=== PATIENT | male | born 1940 | race Caucasian/White ===

== ENCOUNTER 2019-03-30 20:01 | Emergency (ER) | payer MEDICARE ==
--- NOTE | 2019-03-30 20:29 | ED Physician Documentation ---
PD HPI CHEST PAIN - Stated complaint Stated Complaint: CP / HBP - History obtained from History obtained from: Patient - History of Present Illness Timing - onset: Today Timing - duration: Hours (2) Timing - details: Gradual onset Pain level now: 2 Location: Substernal, Left chest Associated symptoms: Shortness of air. No: Nausea, Vomiting, Feeling faint / dizzy, General Weakness Recently seen: Not recently seen - Additional information Additional information: This is an 78-year-old man who presents with his complaints that he is having some pain along his left lateral chest wall that reminds him of when he would get "side stitches" when he ran track and also some substernal discomfort that reminds him of his gastroesophageal reflux. He rates the pain now at about a 3 out of 10 and it has been there for a couple of hours but he is been experiencing some shortness of breath over the past couple of days and intermittently over the past couple of weeks. He became concerned [facility] because his blood pressure was 220/90 and it has been running in the 110s. He did take 1 baby aspirin and 1 adult aspirin prior to coming in [facility] he tried some baking soda which usually helps with his gastroesophageal reflux with minimal relief. He thinks he may be developing some asthma although he is never been fully diagnosed with that and they have been busy clearing some brush and weeds recently and he is attributed to his increase in nasal mucus to that. He has had very minimal cough. He does not use inhalers. He is been taking a herbal supplement for his blood pressure called Rauwolfia root. This herb has controlled his blood pressure better and with less side effects than the lisinopril he was taking previously. He is been on it for about 6 weeks now. He does complain now of feeling "anxious and stressed" he had some shaking jerking motions that is not uncommon for him when he gets stressed. He felt clammy and warm on the way here but he has not documented any fevers. Is not nauseous or vomiting. He is been urinating okay admits to getting up several times through the night. He and his have recently moved here in June of this year and they have not yet established with a primary care provider. He is a generally healthy man although he has had an [place] in the past with stent placement. Review of Systems Constitutional: denies: Fever Eyes: reports: Other (wears glasses). denies: Decreased vision Nose: reports: Congestion Cardiac: reports: Chest pain / pressure. denies: Palpitations, Pedal edema Respiratory: reports: Dyspnea, Cough GI: reports: Other (Feels bloated). denies: Nausea, Vomiting : reports: Other (Chronic nocturia). denies: Dysuria Skin: denies: Rash Musculoskeletal: denies: Back pain Neurologic: denies: Focal weakness, Near syncope Psychiatric: reports: Anxiety (He is feeling anxious now about the fact that his blood pressure still high and he does not want to have a stroke.) Endocrine: reports: Other (He is not diabetic) PD PAST MEDICAL HISTORY - Present Medications Home Medications: Ambulatory Orders Medication Instructions Recorded Confirmed Famotidine [Pepcid] 20 mg PO BID #60 tablet 03/30/19 - Allergies Allergies/Adverse Reactions: Allergies Allergy/AdvReac Type Severity Reaction Status Date / Time No Known Drug Allergies Allergy Verified 03/30/19 20:39 PD ED PE NORMAL - Vitals Vital signs reviewed: Yes - General General: Alert and oriented X 3, No acute distress, Well developed/nourished, Other (Very pleasant 78-year-old gentleman) - HEENT HEENT: Atraumatic, PERRL, EOMI, Moist mucous membranes - Neck Neck: No adenopathy, Thyroid normal - Cardiac Cardiac: RRR, No murmur, Strong equal pulses - Respiratory Respiratory: No respiratory distress, Clear bilaterally - Abdomen Abdomen: Normal bowel sounds, Soft, Non tender - Derm Derm: Normal color, No rash - Neuro Neuro: Alert and oriented X 3, 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, No motor deficit, No sensory deficit, Normal speech - Psych Psych: Normal mood, Normal affect Results - Vitals Vitals: Vital Signs - 24 hr 03/30/19 03/30/19 03/30/19 20:05 21:42 21:50 Temperature 37.1 C Heart Rate 90 70 66 Respiratory 16 18 13 Rate Blood Pressure 223/101 H 165/81 H 149/76 H O2 Saturation 96 96 95 03/30/19 22:50 Temperature Heart Rate 66 Respiratory 16 Rate Blood Pressure 149/70 H O2 Saturation 96 Oxygen O2 Source Room air - EKG (time done) 2009 Rate: Rate (enter#) (83) Rhythm: NSR Intervals: Normal FL Ischemia: Normal ST segments Other comments: Other comments (L ant fascicular block) Compare to prior EKG: Old EKG unavailable - Labs Labs: Laboratory Tests 03/30/19 03/30/19 03/30/19 20:18 20:18 20:18 WBC 6.6 RBC 4.60 L Hgb 13.8 L Hct 42.6 MCV 92.6 MCH 30.0 MCHC 32.4 RDW 14.6 Plt Count 210 MPV 9.2 Neut # (Auto) 3.7 Lymph # (Auto) 2.0 Laurel # (Auto) 0.7 Eos # (Auto) 0.2 Baso # (Auto) 0.0 Absolute Nucleated RBC 0.00 Nucleated RBC % 0.0 Sodium 142 Potassium 4.1 Chloride 105 Carbon Dioxide 25 Anion Gap 12.0 BUN 30 H Creatinine 1.8 H Estimated GFR (MDRD) 36 L Glucose 121 H Calcium 9.1 Total Bilirubin 0.6 AST 31 ALT 28 Alkaline Phosphatase 57 Troponin I High Sens B-Natriuretic Peptide 148 H Total Protein 6.9 Albumin 4.3 Globulin 2.6 Albumin/Globulin Ratio 1.7 Lipase 35 Urine Color Urine Clarity Urine pH Ur Specific [place] Urine Protein Urine Glucose (UA) Urine Ketones Urine Occult Blood Urine Nitrite Urine Bilirubin Urine Urobilinogen Ur Leukocyte Esterase Ur Microscopic Review Urine Culture Comments 03/30/19 03/30/19 20:18 22:22 WBC RBC Hgb Hct MCV MCH MCHC RDW Plt Count MPV Neut # (Auto) Lymph # (Auto) Laurel # (Auto) Eos # (Auto) Baso # (Auto) Absolute Nucleated RBC Nucleated RBC % Sodium Potassium Chloride Carbon Dioxide Anion Gap BUN Creatinine Estimated GFR (MDRD) Glucose Calcium Total Bilirubin AST ALT Alkaline Phosphatase Troponin I High Sens 10.3 B-Natriuretic Peptide Total Protein Albumin Globulin Albumin/Globulin Ratio Lipase Urine Color YELLOW Urine Clarity CLEAR Urine pH 6.5 Ur Specific [place] 1.015 Urine Protein NEGATIVE Urine Glucose (UA) NEGATIVE Urine Ketones NEGATIVE Urine Occult Blood NEGATIVE Urine Nitrite NEGATIVE Urine Bilirubin NEGATIVE Urine Urobilinogen 0.2 (NORMAL) Ur Leukocyte Esterase NEGATIVE Ur Microscopic Review NOT INDICATED Urine Culture Comments NOT INDICATED PD MEDICAL DECISION MAKING - ED course Complexity details: reviewed results, d/w patient, d/w family, d/w farm service consultant ED course: There is no old EKG for comparison but I think the changes that I am seeing are probably related to his prior WY and stent placement. Chest x-ray is clear. His BUN and creatinine are elevated at 30 and 1.8 we have no old values to compare with he seems to the remember number of BUN 25 but does not know what his creatinine was. His urine does not show any protein. We discussed the long-term health consequences of uncontrolled hypertension and the fact that he is showing some endorgan damage with the elevated BUN and creatinine. He is agreeable to going back on an antihypertensive but would like something that he can tolerate the side effects. He was anxious to be discharged home and I had not heard back from the shop mechanic helper at the time of his discharge. I did give him a prescription for Pepcid for his GERD. I did eventually spoke with the shop mechanic helper, Dr Pichardo with [facility] in [facility], and they have recommended that he go on amlodipine 5 mg daily. I will call the patient and notify him of this. He will call to schedule appointment with Cardiology. 0630: Left message on 's phone to please call us so that we could call in the amlodipine Rx to their pharmacy of choice and Rx left with nursing staff. Departure - Departure Disposition: 01 Home, Self Care Clinical Impression: Atypical chest pain, Renal insufficiency Condition: Good Instructions: ED Chest Pain Atypical Unkn Cause Follow-Up: Dr Ashely [Other] Prescriptions: Famotidine [Pepcid] 20 mg PO BID #60 tablet Comments: Restart your lisinopril and contact Dr. Lund regarding a follow-up appointment. I will try and contact him tonight and will contact you if he has any further recommendations. Discharge Date/Time: 03/30/19 23:30
[2019-03-30] MEDS ORDERED: LORazepam 2 MG/ML VIAL IVP STA (20:31)
[2019-03-30] MEDS ORDERED: MAG HYDROX/AL HYDROX/SIMETH 30 ML UDC PO STA (20:31)
[2019-03-30] MEDS ORDERED: LIDOCAINE VISCOUS 2% 15 ML UDC MM STA (20:31)
[2019-03-30 20:39] LABS: BASOPHILS % (AUTO) 0.6 %; EOSINOPHILS # (AUTO) 0.2 10^3/uL (0.0-0.7); EOSINOPHILS % (AUTO) 2.9 %; HGB - HEMOGLOBIN 13.8 g/dL (14.0-18.0); LYMPHOCYTES % (AUTO) 29.4 %; MEAN CORPUSCULAR HGB CONC 32.4 g/dL (32.0-36.0); MEAN CORPUSCULAR VOLUME 92.6 fL (80.0-94.0); MEAN PLATELET VOLUME 9.2 fL (7.4-11.4); MONOCYTES # (AUTO) 0.7 10^3/uL (0.0-1.0); NEUTROPHILS # (AUTO) 3.7 10^3/uL (1.5-6.6); NEUTROPHILS % (AUTO) 55.6 %; PLT - PLATELET COUNT 210 10^3/uL (130-450); RED CELL DISTRIBUTION WIDTH 14.6 % (12.0-15.0); WHITE BLOOD COUNT 6.6 x10^3/uL (4.8-10.8)
--- NOTE | 2019-03-30 20:49 | XRAY Report ---
Reason: chest pain Procedure Date: 03/30/2019 Accession Number: [id number] / [id number] Procedure: XR - Chest 1 View X-Ray CPT Code: 27107 FULL RESULT: EXAM: CHEST RADIOGRAPHY EXAM DATE: 03/30/2019 08:43 PM. CLINICAL HISTORY: Chest pain. COMPARISON: None. TECHNIQUE: Upright AP view. FINDINGS: Lungs/Pleura: No focal opacities evident. No pleural effusion. No pneumothorax. Mediastinum: Within exam limitations, the cardiomediastinal contour is normal. Mild aortic arch calcification. Other: None. IMPRESSION: Normal single view chest. RADIA
[2019-03-30 20:51] LABS: ALBUMIN 4.3 g/dL (3.2-5.5); ALBUMIN/GLOBULIN RATIO 1.7 (1.0-2.2); BILIRUBIN,TOTAL 0.6 mg/dL (0.2-1.0); CALCIUM 9.1 mg/dL (8.5-10.3); CREATININE 1.8 mg/dL (0.6-1.2); TOTAL PROTEIN 6.9 g/dL (6.7-8.2)
[2019-03-30 22:28] LABS: BILIRUBIN,URINE NEGATIVE (NEGATIVE); GLUCOSE, URINE (UA) NEGATIVE (NEGATIVE); KETONES,URINE (UA) NEGATIVE (NEGATIVE); LEUKOCYTE ESTERASE, URINE NEGATIVE (NEGATIVE); NITRITE,URINE NEGATIVE (NEGATIVE); OCCULT BLOOD,URINE NEGATIVE (NEGATIVE); PH,URINE 6.5 PH (5.0-7.5); PROTEIN,URINE NEGATIVE (NEGATIVE); UROBILINOGEN,URINE 0.2 (NORMAL) E.U./dL (NORMAL)
[2019-03-30 22:30] LABS: CLARITY,URINE CLEAR (CLEAR)
[2019-03-30 23:18] VITALS: BP 149/70
== END 2019-03-30 23:30 | disposition home or self-care (01) ==
LOC: ED 20:01
DX: R07.89 Other chest pain (principal); N28.9 Disorder of kidney and ureter, unspecified; I10 Essential (primary) hypertension; I44.4 Left anterior fascicular block; I25.2 Old myocardial infarction; Z95.5 Presence of coronary angioplasty implant and graft; K21.9 Gastro-esophageal reflux disease without esophagitis
CPT/HCPCS: 36415; 71045; 80053; 81003; 83690; 83880; 84484; 85025; 93005; 96374; 99281; 99284; A9270; J2060; 81001; 87086

== ENCOUNTER 2020-09-20 13:10 | Emergency (ER) | payer MEDICARE ==
[2020-09-20 13:39] VITALS: BP 200/90
--- NOTE | 2020-09-20 15:45 | ED Physician Documentation ---
PD HPI UPPER EXT INJURY - Stated complaint Stated Complaint: LT INDEX LAC - Chief complaint Chief Complaint: Laceration - History obtained from History obtained from: Patient - History of Present Illness Location: Left, Finger (index) Type of injury: Other (pinched) Where injury occurred: Home Timing - onset: Today Timing - duration: Hours Timing - details: Abrupt onset, Still present Improved by: Rest, Immobilization Worsened by: Moving, Palpating Associated symptoms: No: Weakness, Numbness, Tingling Contributing factors: No: Anticoagulated Similar symptoms before: Diagnosis (laceration) Recently seen: Not recently seen - Additonal information Additional information: Previously well and healthy 80-year-old male was using a piece of equipment today that pinched the tip of his left index finger and he has a flap laceration to this he has been able to push the flap back down onto his finger and he has been able to control the bleeding with direct pressure. Review of Systems Constitutional: denies: Fever Respiratory: denies: Cough GI: denies: Vomiting PD PAST MEDICAL HISTORY - Past Medical History Past Medical History: Yes Cardiovascular: [place] Respiratory: None Neuro: None Endocrine/Autoimmune: None GI: GERD : Retention HEENT: None Psych: Anxiety Musculoskeletal: Osteoarthritis Derm: None - Past Surgical History Past Surgical History: Yes General: EGD Cardiovascular: Coronary stent Derm: Skin cancer surgery - Present Medications Home Medications: Ambulatory Orders Medication Instructions Recorded Confirmed Lisinopril [Prinivil] 5 mg PO DAILY 09/20/20 09/20/20 - Allergies Allergies/Adverse Reactions: Allergies Allergy/AdvReac Type Severity Reaction Status Date / Time No Known Drug Allergies Allergy Verified 03/30/19 20:39 - Social History Does the pt smoke?: No Smoking Status: Never smoker Does the pt drink ETOH?: Yes Does the pt have substance abuse?: No - Immunizations Immunizations are current?: Yes - POLST Patient has POLST: No PD ED PE NORMAL - Vitals Vital signs reviewed: Yes (hypertensive ) - HEENT HEENT: Atraumatic, PERRL, EOMI - Respiratory Respiratory: No respiratory distress - Derm Derm: Normal color, Warm and dry, No rash - Extremities Extremities: No deformity, No edema, Other (There is a 2 cm flap laceration to the left index finger that is superficial and bleeding is controlled with direct pressure.) - Neuro Neuro: Alert and oriented X 3, 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, No motor deficit, No sensory deficit, Normal speech Eye Opening: Spontaneous Motor: Obeys Commands Verbal: Oriented GCS Score: 15 - Psych Psych: Normal mood, Normal affect Results - Vitals Vitals: Vital Signs - 24 hr 09/20/20 13:31 Temperature 36.8 C Heart Rate 63 Respiratory 14 Rate Blood Pressure 200/90 H O2 Saturation 98 Oxygen O2 Source Room air Procedures - Laceration (location) left index Length in cm: 2 Wound type: Irregular, Flap, Superficial Neurovascular status: Sensory intact, Motor intact, Vascular intact Wound preparation: Wound explored, To the base, Other (cleansed with saline and gauze) Skin layer closure: Dermabond, Other (closed with T-ring lac) Other: Patient tolerated well, No complications, Neurovascular intact, Dressing applied, Tetanus UTD PD MEDICAL DECISION MAKING - ED course Complexity details: considered differential, d/w patient ED course: 80-year-old male with a superficial laceration to left index finger has repair done with the 10 ring closure tolerates this well and is up-to-date on his tetanus.
--- OUTSIDE RECORDS SUMMARY | 2020-09-27 00:05 | EXTERNAL MEDICAL SUMMARY RPT | Continuity of Care Document ---
:1940 Demographics Phone Unavailable Preferred Language Unknown Marital Status Unknown Catholic Affiliation Unknown Race Unknown Ethnic Group Unknown Author Organization [facility] Address [address] [place] [address] Phone Social History date description facility [id number]
== END 2020-09-20 16:14 | disposition home or self-care (01) ==
LOC: SUPCPDRO 13:10 → ED 13:10
DX: S61.211A Laceration without foreign body of left index finger without damage to nail, initial encounter (principal); W23.0XXA Caught, crushed, jammed, or pinched between moving objects, initial encounter; Y92.009 Unspecified place in unspecified non-institutional (private) residence as the place of occurrence of the external cause
CPT/HCPCS: 12001; 99281; 99282

== ENCOUNTER 2021-01-02 14:47 | Emergency (ER) | payer MEDICARE ==
--- NOTE | 2021-01-02 15:40 | ED Physician Documentation ---
PD HPI NECK PAIN - Stated complaint Stated Complaint: NECK PX - Chief complaint Chief Complaint: General - History obtained from History obtained from: Patient - History of Present Illness Timing - onset: How many days ago (2) Timing - duration: Days (2) Timing - details: Abrupt onset, Still present Location: Upper, Left, Other (no radiation) Quality: Pain, Sharp Associated symptoms: No: Fever, Weakness, Numbness Worsened by: Movement. No: Palpation Contributing factors: No: Lifting, Twisting, Trauma Similar symptoms before: Has not had sx before Recently seen: Not recently seen Review of Systems Constitutional: denies: Fever, Chills Nose: denies: Rhinorrhea / runny nose, Congestion Throat: denies: Sore throat Respiratory: denies: Cough Musculoskeletal: reports: Neck pain. denies: Back pain Neurologic: denies: Focal weakness, Numbness PD PAST MEDICAL HISTORY - Past Medical History Past Medical History: Yes Cardiovascular: Coronary artery disease, [place] Respiratory: None Neuro: None Endocrine/Autoimmune: None GI: GERD : Retention HEENT: None Psych: Anxiety Musculoskeletal: Osteoarthritis Derm: None - Past Surgical History Past Surgical History: Yes General: EGD Cardiovascular: Coronary stent Derm: Skin cancer surgery - Present Medications Home Medications: Ambulatory Orders Medication Instructions Recorded Confirmed lisinopriL [Prinivil] 5 mg PO DAILY 09/20/20 01/02/21 Clopidogrel [Plavix] 75 mg PO DAILY 01/02/21 01/02/21 HYDROcod/ACETAM 5/325 [Darrow 5/325] 1 ea PO Q6H PRN #15 tablet 01/02/21 dexAMETHasone [Decadron] 4 mg PO DAILY #5 tablet 01/02/21 tiZANidine [Zanaflex] 4 mg PO Q8H PRN #20 tablet 01/02/21 - Allergies Allergies/Adverse Reactions: Allergies Allergy/AdvReac Type Severity Reaction Status Date / Time No Known Drug Allergies Allergy Verified 01/02/21 14:51 - Social History Does the pt smoke?: No Smoking Status: Never smoker Does the pt drink ETOH?: Yes Does the pt have substance abuse?: No - Immunizations Immunizations are current?: Yes - POLST Patient has POLST: No PD ED PE NORMAL - Vitals Vital signs reviewed: Yes - General General: Alert and oriented X 3, Well developed/nourished, Other (appears in pain with neck movement. ) - Neck Neck: Supple, no meningeal sign, No bony TTP (no point tenderness but pain is left upper neck with movement. ) - Cardiac Cardiac: RRR, No murmur - Respiratory Respiratory: Clear bilaterally - Derm Derm: Normal color, Warm and dry, No rash - Extremities Extremities: No tenderness to palpate, Normal ROM s pain - Neuro Neuro: Alert and oriented X 3, No motor deficit, No sensory deficit, Normal speech Results - Vitals Vitals: Oxygen O2 Source Room air - Rads (name of study) cervical spine Radiology: Prelim report reviewed (mild degenerative changes; no acute findings. ), See rad report PD MEDICAL DECISION MAKING - ED course Complexity details: reviewed results (no acute process), considered differential (likely muscular but abrupt onset and some midline sharp pain, so will get imaging to eval for bony acute process. No neuro symptoms, so CT should suffice and not need MRI. ), d/w patient Departure - Departure Disposition: 01 Home, Self Care Clinical Impression: Neck pain Condition: Stable Record reviewed to determine appropriate education?: Yes Instructions: ED Neck Pain No Trauma Follow-Up: SUN DICKENS DO [Primary Care Provider] - Prescriptions: dexAMETHasone [Decadron] 4 mg PO DAILY #5 tablet HYDROcod/ACETAM 5/325 [Darrow 5/325] 1 ea PO Q6H PRN #15 tablet PRN Reason: Pain tiZANidine [Zanaflex] 4 mg PO Q8H PRN #20 tablet PRN Reason: Spasms Comments: You could try some heat to the neck periodically to help loosen the muscles and improve range of motion. Your CT scan does not show any acute abnormalities such as compression fractures, pathologic fractures, bone tumors or such. I presume you have some muscular strain with spasming. Take Decadron steroid anti-inflammatory daily for 5 more days. Tizanidine muscle relaxant 3-4 times a day regularly for a few days and then as needed for spasm and stiffness. To that add Tylenol or hydrocodone/acetaminophen every 4-6 hours if needed for worse pain. I would anticipate improvement over the next 2 to 3 days and resolved by 3 to 5 days. Follow-up if not improving in that timeframe. Discharge Date/Time: 01/02/21 17:53
[2021-01-02] MEDS ORDERED: KETOROLAC 15 MG/ML VIAL IM STA (16:05)
[2021-01-02] MEDS ORDERED: oxyCODONE 5 MG TABLET PO STA (16:05)
--- NOTE | 2021-01-02 17:09 | CT Report ---
PROCEDURE: CERVICAL SPINE WO INDICATIONS: Upper neck pain, nontraumatic TECHNIQUE: Noncontrast 3 mm thick sections acquired from the skull base to the T4 level. Sagittal and coronal r eformats were then constructed. For radiation dose reduction, the following was used: automated exp osure control, adjustment of mA and/or kV according to patient size. COMPARISON: None. FINDINGS: Degenerative straightening of the usual cervical lordosis. Normal cervical spine vertebral body heigh t and alignment otherwise. Craniocervical junction is in normal alignment. There is no suspicious lyt ic or blastic osseous lesion. Vertebral body heights are maintained. The unenhanced regional soft tissues are within normal limits. There is aortic atherosclerosis. Inclu ded portions of the lung apices are clear. At C2-C3, no spinal canal or neural foraminal stenosis. At C3-C4, mild bilateral neural foraminal narrowing due to facet and uncovertebral hypertrophy. No sp inal canal stenosis. At C4-C5, mild bilateral neural foraminal narrowing due to facet and uncovertebral hypertrophy. No sp inal canal stenosis. At C5-C6, posterior discussed by complex flattens the ventral thecal sac. Facet and uncovertebral hyp ertrophy continue to moderate left and mild right neural foraminal stenosis. At C6-C7, mild bilateral neural foraminal narrowing, right greater left. At C7-T1, no spinal canal or neural foraminal stenosis. IMPRESSION: Mild degenerative changes. No acute finding. Reviewed by: Tato Burch MD on 01/02/2021 5:07 PM PDT Approved by: Tato Burch MD on 01/02/2021 5:07 PM PDT Station ID: [id number]
[2021-01-02 17:53] VITALS: BP 131/57
== END 2021-01-02 17:53 | disposition home or self-care (01) ==
LOC: ED 14:47
DX: M54.2 Cervicalgia (principal)
CPT/HCPCS: 72125; 96372; 99284; A9270

== ENCOUNTER 2021-02-12 09:28 | Outpatient (CLI) | payer MEDICARE ==
[2021-02-12 09:43] LABS: BASOPHILS # (AUTO) 0.1 10^3/uL (0.0-0.1); BASOPHILS % (AUTO) 0.8 %; EOSINOPHILS # (AUTO) 0.1 10^3/uL (0.0-0.7); EOSINOPHILS % (AUTO) 1.2 %; HGB - HEMOGLOBIN 15.4 g/dL (14.0-18.0); LYMPHOCYTES # (AUTO) 1.4 10^3/uL (1.5-3.5); LYMPHOCYTES % (AUTO) 23.4 %; MEAN CORPUSCULAR HEMOGLOBIN 30.3 pg (27.0-31.0); MEAN CORPUSCULAR HGB CONC 32.1 g/dL (32.0-36.0); MEAN CORPUSCULAR VOLUME 94.3 fL (80.0-94.0); MONOCYTES # (AUTO) 0.5 10^3/uL (0.0-1.0); MONOCYTES % (AUTO) 8.6 %; NEUTROPHILS % (AUTO) 65.7 %; PLT - PLATELET COUNT 261 10^3/uL (130-450); RED BLOOD COUNT 5.09 10^6/uL (4.70-6.10); RED CELL DISTRIBUTION WIDTH 14.2 % (12.0-15.0); WHITE BLOOD COUNT 6.1 x10^3/uL (4.8-10.8)
[2021-02-12 10:00] LABS: ALBUMIN 4.7 g/dL (3.2-5.5); ALBUMIN/GLOBULIN RATIO 1.8 (1.0-2.2); ALKALINE PHOSPHATASE 63 IU/L (42-121); ALT ALANINE AMINOTRANSFERASE 22 IU/L (10-60); AST ASPARTATE AMINOTRANSFERASE 27 IU/L (10-42); BILIRUBIN,TOTAL 0.9 mg/dL (0.2-1.0); BUN - BLOOD UREA NITROGEN 23 mg/dL (6-20); CALCIUM 9.8 mg/dL (8.5-10.3); CARBON DIOXIDE - CO2 27 mmol/L (21-32); CHLORIDE 104 mmol/L (101-111); CHOL/HDL RATIO 5.2 (<5.0); CHOLESTEROL 249 mg/dL; CREATININE 1.3 mg/dL (0.6-1.2); GFR - MDRD 53 (>89); GLUCOSE 113 mg/dL (70-100); HDL CHOLESTEROL 48 mg/dL; LDL CHOLESTEROL,CALCULATED 165 mg/dL; LDL/HDL RATIO 3.4 (<3.6); POTASSIUM 4.1 mmol/L (3.5-5.0); SODIUM 140 mmol/L (135-145); TOTAL PROTEIN 7.3 g/dL (6.7-8.2); TRIGLYCERIDES 180 mg/dL; VLDL CHOLESTEROL 36 mg/dL
== END 2021-02-12 09:29 | disposition home or self-care (01) ==
LOC: LAB 09:28
PROVIDERS: ATTEND Family Medicine
DX: Z00.00 Encounter for general adult medical examination without abnormal findings (principal)
CPT/HCPCS: 36415; 80053; 80061; 83721; 84153; 85025

== ENCOUNTER 2021-10-07 14:10 | Emergency (ER) | payer MEDICARE ==
--- NOTE | 2021-10-07 14:29 | ED Physician Documentation ---
PD HPI CHEST PAIN - Stated complaint Stated Complaint: HIGH BP/CHEST PX - Chief complaint Chief Complaint: Cardiac - History obtained from History obtained from: Patient - History of Present Illness Timing - onset: How many hours ago (1) Timing - onset during: Light activity Timing - details: Abrupt onset, Now resolved (lasted about 5-10 minutes then i mproved. No recurrent pain.) Quality: Tightness, Aching Location: Substernal, Right chest Radiation: Right upper extremity. No: Neck, Back Improved by: Rest Worsened by: No: Inspiration, Movement, Palpation Associated symptoms: Other (he did take his BP with the symptoms and noted BP elevated at 220/110. Concerned about the pain and elevated BP so here for eval.). No: Shortness of air, Nausea, Feeling faint / dizzy Similar symptoms before: Diagnosis (The patient does have history of prior heart attacks with multiple stents in the past. He had recent stress test about a year ago with out any problems. He has not had any exertionally related chest pain with household and yard activities.) Recently seen: Not recently seen Review of Systems Constitutional: denies: Fever, Chills Nose: denies: Rhinorrhea / runny nose, Congestion Throat: denies: Sore throat Cardiac: denies: Palpitations, Pedal edema, Calf pain Respiratory: denies: Dyspnea, Cough, Wheezing GI: denies: Abdominal Pain, Nausea, Vomiting, Diarrhea Musculoskeletal: denies: Neck pain, Back pain Neurologic: denies: Generalized weakness, Near syncope PD PAST MEDICAL HISTORY - Past Medical History Cardiovascular: Coronary artery disease, [place] Respiratory: None Neuro: None Endocrine/Autoimmune: None GI: GERD : Retention HEENT: None Psych: Anxiety Musculoskeletal: Osteoarthritis Derm: None - Past Surgical History Past Surgical History: Yes General: EGD Cardiovascular: Coronary stent Derm: Skin cancer surgery - Present Medications Home Medications: Ambulatory Orders Medication Instructions Recorded Confirmed lisinopriL [Prinivil] 5 mg PO DAILY 09/20/20 01/02/21 Clopidogrel [Plavix] 75 mg PO DAILY 01/02/21 01/02/21 HYDROcod/ACETAM 5/325 [[place] 5/325] 1 ea PO Q6H PRN #15 tablet 01/02/21 dexAMETHasone [Decadron] 4 mg PO DAILY #5 tablet 01/02/21 tiZANidine [Zanaflex] 4 mg PO Q8H PRN #20 tablet 01/02/21 - Allergies Allergies/Adverse Reactions: Allergies Allergy/AdvReac Type Severity Reaction Status Date / Time No Known Drug Allergies Allergy Verified 10/07/21 14:20 - Social History Does the pt smoke?: No Smoking Status: Never smoker Does the pt drink ETOH?: Yes Does the pt have substance abuse?: No - Immunizations Immunizations are current?: Yes - POLST Patient has POLST: No PD ED PE NORMAL - Vitals Vital signs reviewed: Yes - General General: Alert and oriented X 3, Well developed/nourished - Neck Neck: Supple, no meningeal sign, No adenopathy - Cardiac Cardiac: RRR, No murmur - Respiratory Respiratory: No respiratory distress, Clear bilaterally, Other (no chestwall tenderness) - Abdomen Abdomen: Soft, Non tender - Derm Derm: Normal color, Warm and dry - Extremities Extremities: Normal ROM s pain, No edema, No calf tenderness / cord - Neuro Neuro: Alert and oriented X 3, No motor deficit, Normal speech Results - Vitals Vitals: Vital Signs - 24 hr 10/07/21 10/07/21 10/07/21 14:20 15:45 16:00 Temperature 37.0 C Heart Rate 89 74 77 Respiratory 18 20 18 Rate Blood Pressure 180/84 H 171/107 H 167/80 H O2 Saturation 99 99 99 10/07/21 16:30 Temperature Heart Rate 63 Respiratory 10 L Rate Blood Pressure 145/70 H O2 Saturation 100 Oxygen O2 Source Room air - EKG (time done) 14:18 Rate: Rate (enter#) (83) QRS: LVH, Poor R wave progression Ischemia: Normal ST segments. No: ST elevation c/w ischemia, ST depression Compare to prior EKG: Unchanged from prior EKG (03/30/19) - Labs Labs: Laboratory Tests 10/07/21 10/07/21 10/07/21 14:35 14:35 14:35 WBC 7.1 RBC 4.79 Hgb 14.5 Hct 43.5 MCV 90.8 MCH 30.3 MCHC 33.3 RDW 14.3 Plt Count 220 MPV 9.2 Neut # (Auto) 5.0 Lymph # (Auto) 1.3 L [place] # (Auto) 0.7 Eos # (Auto) 0.1 Baso # (Auto) 0.1 Absolute Nucleated RBC 0.00 Nucleated RBC % 0.0 Sodium 135 Potassium 4.1 Chloride 100 L Carbon Dioxide 24 Anion Gap 11.0 BUN 23 H Creatinine 1.3 H Estimated GFR (MDRD) 53 L Glucose 150 H Calcium 9.3 Total Bilirubin 0.6 AST 27 ALT 20 Alkaline Phosphatase 67 Troponin I High Sens 30.7 H* Total Protein 6.9 Albumin 4.3 Globulin 2.6 Albumin/Globulin Ratio 1.7 Lipase 39 10/07/21 15:54 WBC RBC Hgb Hct MCV MCH MCHC RDW Plt Count MPV Neut # (Auto) Lymph # (Auto) [place] # (Auto) Eos # (Auto) Baso # (Auto) Absolute Nucleated RBC Nucleated RBC % Sodium Potassium Chloride Carbon Dioxide Anion Gap BUN Creatinine Estimated GFR (MDRD) Glucose Calcium Total Bilirubin AST ALT Alkaline Phosphatase Troponin I High Sens 40.6 H* Total Protein Albumin Globulin Albumin/Globulin Ratio Lipase - Rads (name of study) chest xray Radiology: Prelim report reviewed (no acute process), See rad report PD MEDICAL DECISION MAKING - ED course Complexity details: reviewed results (Initial troponin was minimally elevated above normal at 30. A repeat 2 hours later is minimally changed at 40. This would be indicative of no acute event or heart injury.), considered differential (concern for ACS and can get troponin and ECG.), d/w patient Departure - Departure Disposition: 01 Home, Self Care Clinical Impression: Transient hypertension Chest pain Qualifiers: Chest pain type: precordial pain Qualified Code(s): R07.2 - Precordial pain Clinical Impression: (Ruled Out): Myocardial infarction Condition: Stable Record reviewed to determine appropriate education?: Yes Instructions: ED Chest Pain Atypical Unkn Cause Follow-Up: SUN DICKENS DO [Primary Care Provider] - Comments: Your blood tests are good without any signs of acute heart attack. No signs of heart failure. Your EKG and chest x-ray are normal. At this point I am not sure the cause of your chest pain episode. Consider muscular spasm or irritation or potential reflux or such. Does not appear to be anything dangerous. Your blood pressure elevation has improved and was likely secondary to a bit of adrenaline related to your symptoms. Generally speaking, blood pressure elevation during times of some stress will commonly come down on its own. Best option may be to not take your blood pressure at those points in time.
[2021-10-07 14:42] LABS: BASOPHILS # (AUTO) 0.1 10^3/uL (0.0-0.1); BASOPHILS % (AUTO) 0.7 %; EOSINOPHILS # (AUTO) 0.1 10^3/uL (0.0-0.7); EOSINOPHILS % (AUTO) 1.4 %; HCT - HEMATOCRIT 43.5 % (42.0-52.0); HGB - HEMOGLOBIN 14.5 g/dL (14.0-18.0); LYMPHOCYTES # (AUTO) 1.3 10^3/uL (1.5-3.5); LYMPHOCYTES % (AUTO) 18.8 %; MEAN CORPUSCULAR HEMOGLOBIN 30.3 pg (27.0-31.0); MEAN CORPUSCULAR HGB CONC 33.3 g/dL (32.0-36.0); MEAN CORPUSCULAR VOLUME 90.8 fL (80.0-94.0); MEAN PLATELET VOLUME 9.2 fL (7.4-11.4); MONOCYTES # (AUTO) 0.7 10^3/uL (0.0-1.0); MONOCYTES % (AUTO) 9.4 %; NEUTROPHILS % (AUTO) 69.6 %; PLT - PLATELET COUNT 220 10^3/uL (130-450); RED BLOOD COUNT 4.79 10^6/uL (4.70-6.10); RED CELL DISTRIBUTION WIDTH 14.3 % (12.0-15.0); WHITE BLOOD COUNT 7.1 x10^3/uL (4.8-10.8)
--- NOTE | 2021-10-07 14:46 | XRAY Report ---
PROCEDURE: Chest 1 View X-Ray INDICATIONS: Chest pain TECHNIQUE: One view of the chest was acquired. COMPARISON: 03/30/2019 FINDINGS: Surgical changes and devices: None. Lungs and pleura: An incomplete inspiratory result is noted, with low lung volumes and crowding of t he vascular markings. No focal infiltrates are seen. No large pneumothorax or large pleural effusion can be seen. Mediastinum: Mediastinal contours appear normal. Heart size is normal. Calcification is seen of th e aortic arch. Bones and chest wall: No suspicious bony lesions. Age-appropriate degenerative changes are seen. Overlying soft tissues appear unremarkable. IMPRESSION: Unremarkable portable chest for age. Reviewed by: Laci Tovar MD on 10/07/2021 1:45 PM AKVIVEK Approved by: Laci Tovar MD on 10/07/2021 1:45 PM AKDT Station ID: [id number]
[2021-10-07 14:55] LABS: ALBUMIN 4.3 g/dL (3.2-5.5); ALBUMIN/GLOBULIN RATIO 1.7 (1.0-2.2); BILIRUBIN,TOTAL 0.6 mg/dL (0.2-1.0); CALCIUM 9.3 mg/dL (8.5-10.3); CREATININE 1.3 mg/dL (0.6-1.2); POTASSIUM 4.1 mmol/L (3.5-5.0); TOTAL PROTEIN 6.9 g/dL (6.7-8.2)
[2021-10-07 16:32] VITALS: BP 145/70
== END 2021-10-07 16:44 | disposition home or self-care (01) ==
LOC: ED 14:10
DX: R07.2 Precordial pain (principal); I10 Essential (primary) hypertension; Z95.5 Presence of coronary angioplasty implant and graft; I25.2 Old myocardial infarction
CPT/HCPCS: 36415; 80053; 83690; 84484; 85025; 93005; 99284

== ENCOUNTER 2021-10-27 07:32 | Emergency (ER) | payer MEDICARE ==
[2021-10-27 07:43] VITALS: BP 190/75
[2021-10-27] MEDS ORDERED: HYDROcod/ACETAM 5/325 MG TABLET PO STA (08:29)
--- NOTE | 2021-10-27 08:29 | XRAY Report ---
PROCEDURE: Wrist 4 View RT INDICATIONS: Trauma TECHNIQUE: 4 views of the wrist were acquired. COMPARISON: None. FINDINGS: Bones: No fractures or dislocations. Cortical irregularity along the ulnar aspect of the hamate. Mi ld degenerative joint disease. Scaphoid view: Scaphoid is intact. Soft tissues: No suspicious soft tissue calcifications. Soft tissue swelling. IMPRESSION: 1. Possible fracture in the ulnar aspect of hamate. A differential diagnosis is artifact from degener ative change. Recommend a follow-up examination in 7-10 days. Reviewed by: Aydin Meng MD on 10/27/2021 7:27 AM RUBEN Approved by: Aydin Meng MD on 10/27/2021 7:27 AM AKDT Station ID: [id number]
--- NOTE | 2021-10-27 08:32 | ED Physician Documentation ---
PD HPI UPPER EXT INJURY - Stated complaint Stated Complaint: RT WRIST PX - Chief complaint Chief Complaint: Trauma Ext - History obtained from History obtained from: Patient, Family - History of Present Illness Location: Right, Wrist Type of injury: Fall Where injury occurred: Home Timing - onset: Yesterday Timing - duration: Days (1) Timing - details: Abrupt onset, Still present Improved by: Rest, Ice, Immobilization Worsened by: Moving, Palpating Associated symptoms: Swelling. No: Weakness, Numbness Contributing factors: No: Anticoagulated Similar symptoms before: Has not had sx before Recently seen: Not recently seen - Additonal information Additional information: Previously well 81-year-old male had a fall at his home yesterday onto an outstretched right hand. He states that he stumbled and fell forward. He has pain in the wrist and he placed it into a Velcro splint which did not seem to help much. He had a poor night of sleep secondary to pain. He is come to the emergency department this morning for evaluation. Review of Systems Constitutional: denies: Fever Nose: denies: Congestion Respiratory: denies: Cough GI: denies: Vomiting, Diarrhea PD PAST MEDICAL HISTORY - Past Medical History Past Medical History: Yes Cardiovascular: Hypertension, Coronary artery disease, [place] Respiratory: None Neuro: None Endocrine/Autoimmune: None GI: GERD : Retention HEENT: None Psych: Anxiety Musculoskeletal: Osteoarthritis Derm: None - Past Surgical History Past Surgical History: Yes General: EGD Cardiovascular: Coronary stent Derm: Skin cancer surgery - Present Medications Home Medications: Ambulatory Orders Medication Instructions Recorded Confirmed lisinopriL [Prinivil] 5 mg PO DAILY 09/20/20 10/27/21 HYDROcod/ACETAM 5/325 [[place] 5/325] 1 - 2 tablet PO Q6H PRN #14 tablet 10/27/21 - Allergies Allergies/Adverse Reactions: Allergies Allergy/AdvReac Type Severity Reaction Status Date / Time No Known Drug Allergies Allergy Verified 10/27/21 07:39 - Social History Does the pt smoke?: No Smoking Status: Never smoker Does the pt drink ETOH?: Yes Does the pt have substance abuse?: No - Immunizations Immunizations are current?: Yes - POLST Patient has POLST: No PD ED PE NORMAL - Vitals Vital signs reviewed: Yes (hpyertensive ) - General General: Alert and oriented X 3, No acute distress, Well developed/nourished - HEENT HEENT: Atraumatic, PERRL, EOMI - Respiratory Respiratory: No respiratory distress - Derm Derm: Normal color, Warm and dry, No rash - Extremities Extremities: Other (Swelling and point tenderness to the anatomic snuff box on the right wrist. There is restriction of ROM secondary to pain. distal n/v intact) - Neuro Neuro: Alert and oriented X 3, animal nutritionist 2-12 intact, No motor deficit, No sensory deficit, Normal speech Eye Opening: Spontaneous Motor: Obeys Commands Verbal: Oriented GCS Score: 15 - Psych Psych: Normal mood, Normal affect Results - Vitals Vitals: Vital Signs - 24 hr 10/27/21 07:39 Temperature 36.3 C L Heart Rate 75 Respiratory 18 Rate Blood Pressure 190/75 H O2 Saturation 100 Oxygen O2 Source Room air - Rads (name of study) right wrist Radiology: Prelim report reviewed (Impression: 1. Possible fracture in the ulnar aspect of hamate. Differential diagnosis is artifact from degenerative change. Recommend a follow-up examination in 7 to 10 days.), EMP read indepedently, See rad report Procedures - Splint (location) right wrist Splint applied by: Tech Type of splint: Fiberglass, Volar cock up Other: Patient tolerated well, No complications, Neurovascular intact, Good alignment, Sling provided PD MEDICAL DECISION MAKING - ED course Complexity details: reviewed old records, reviewed results, re-evaluated patient, considered differential, d/w patient, d/w family ED course: Previously well 81-year-old male with a FOOSH to his right wrist has pain over the anatomic snuffbox he does not appear to have pain over the hamate. The radiologist is called talk potential fracture there. I have indicated the patient he will need a second x-ray specifically for the scaphoid. He is placed into a volar cock-up splint given some pain medication and he will follow-up with his primary. Departure - Departure Disposition: 01 Home, Self Care Clinical Impression: Sprain of wrist, right Qualifiers: Encounter type: initial encounter Qualified Code(s): S63.501A - Unspecified sprain of right wrist, initial encounter Condition: Stable Instructions: ED Sprain Wrist Follow-Up: SUN DICKENS DO [Primary Care Provider] - Prescriptions: HYDROcod/ACETAM 5/325 [[place] 5/325] 1 - 2 tablet PO Q6H PRN #14 tablet PRN Reason: Pain Comments: Dhiraj, today it looks like you have a sprain of your wrist the radiologist has a concern about the hamate bone in the wrist which is not where you are tender. You will need a follow-up x-ray in 7 to 10 days and a call to your primary to set that up as recommended. Under the best of circumstances a simple sprain will have marked improvement by 2 weeks. We have provided some pain medication which has been E scribed to the community pharmacy in [place].
== END 2021-10-27 08:49 | disposition home or self-care (01) ==
LOC: ED 07:32
DX: S63.501A Unspecified sprain of right wrist, initial encounter (principal); W01.0XXA Fall on same level from slipping, tripping and stumbling without subsequent striking against object, initial encounter; Y92.009 Unspecified place in unspecified non-institutional (private) residence as the place of occurrence of the external cause; I10 Essential (primary) hypertension
CPT/HCPCS: 29125; 73110; 99282; 99283; A9270

== ENCOUNTER 2021-10-31 13:09 | Emergency (ER) | payer MEDICARE ==
--- NOTE | 2021-10-31 13:36 | ED Physician Documentation ---
PD HPI UPPER EXT INJURY - Stated complaint Stated Complaint: RIGHT HAND SWELLING - Chief complaint Chief Complaint: Ext Problem - History obtained from History obtained from: Patient - History of Present Illness Location: Wrist Pain level max: 5 Pain level now: 2 Improved by: Rest, Immobilization Worsened by: Moving, Palpating Associated symptoms: Swelling Contributing factors: No: Anticoagulated - Additonal information Additional information: Patient is an 81-year-old male who presents to the emergency department right hand swelling. He states that he fell about a week ago. Had an x-ray 1 week ago which showed a possible fracture at the hook of the hamate. He was placed in a splint. He states he took off the splint last night because of swelling to his hand. He has been using a sling over the past few days, he states his hand was more swollen last night. It is decreased and taken off the splint. He states there is still pain but it is better than before. No numbness or tingling. Review of Systems Constitutional: denies: Fever, Chills Nose: denies: Rhinorrhea / runny nose, Congestion Throat: denies: Sore throat Cardiac: denies: Chest pain / pressure Respiratory: denies: Cough GI: denies: Abdominal Pain, Nausea, Vomiting, Diarrhea Skin: denies: Rash Musculoskeletal: denies: Neck pain, Back pain Neurologic: denies: Headache PD PAST MEDICAL HISTORY - Past Medical History Cardiovascular: Hypertension, Coronary artery disease, [place] Respiratory: None Neuro: None Endocrine/Autoimmune: None GI: GERD : Retention HEENT: None Psych: Anxiety Musculoskeletal: Osteoarthritis Derm: None - Past Surgical History Past Surgical History: Yes General: EGD Cardiovascular: Coronary stent Derm: Skin cancer surgery - Present Medications Home Medications: Ambulatory Orders Medication Instructions Recorded Confirmed lisinopriL [Prinivil] 5 mg PO DAILY 09/20/20 10/27/21 HYDROcod/ACETAM 5/325 [[place] 5/325] 1 - 2 tablet PO Q6H PRN #14 tablet 10/27/21 - Allergies Allergies/Adverse Reactions: Allergies Allergy/AdvReac Type Severity Reaction Status Date / Time No Known Drug Allergies Allergy Verified 10/31/21 13:19 - Social History Does the pt smoke?: No Smoking Status: Never smoker Does the pt drink ETOH?: Yes Does the pt have substance abuse?: No - Immunizations Immunizations are current?: Yes - POLST Patient has POLST: No PD ED PE NORMAL - Vitals Vital signs reviewed: Yes - General General: Alert and oriented X 3, No acute distress, Well developed/nourished - HEENT HEENT: Moist mucous membranes - Derm Derm: Warm and dry - Extremities Extremities: Other (Tender to palpation over the dorsum of the right wrist. No snuffbox tenderness. Mild swelling and bruising to the posterior aspect of the right hand. NVI) - Neuro Neuro: Alert and oriented X 3 - Psych Psych: Normal mood, Normal affect Results - Vitals Vitals: Vital Signs - 24 hr 10/31/21 10/31/21 13:15 14:03 Temperature 36.7 C Heart Rate 88 Respiratory 14 Rate Blood Pressure 140/78 H O2 Saturation 98 Oxygen O2 Source Room air - Rads (name of study) Right hand x-ray Radiology: Final report received, EMP read contemporaneously, See rad report (No acute fracture) PD MEDICAL DECISION MAKING - ED course Complexity details: reviewed results, re-evaluated patient, considered differential, d/w patient ED course: No acute fractures on x-ray. Hand swelling is likely dependent edema from the splint. We will take him out of the splint and have him start to use the hand. Patient will return if he worsens. Patient counseled regarding signs and symptoms for which I believe and urgent re-evaluation would be necessary. Patient with good understanding of and agreement to plan and is comfortable going home at this time This document was made in part using voice recognition software. While efforts are made to proofread this document, sound alike and grammatical errors may occur. Departure - Departure Disposition: 01 Home, Self Care Clinical Impression: Contusion, hand Qualifiers: Encounter type: initial encounter Laterality: right Qualified Code(s): S60.221A - Contusion of right hand, initial encounter Condition: Good Instructions: ED Contusion Hand Follow-Up: SUN DICKENS DO [Primary Care Provider] - Within 1 week Comments: There are no fractures on your x-ray today. The swelling in the hand should decrease on its own. Please follow-up with your doctor for further care. Return if you worsen. Elevate the wrist whenever possible. Discharge Date/Time: 10/31/21 14:55
--- NOTE | 2021-10-31 14:01 | XRAY Report ---
PROCEDURE: Wrist 4 View RT INDICATIONS: fall 1 week ago, continued pain/swelling TECHNIQUE: 4 views of the wrist were acquired. COMPARISON: October 27, 2021 FINDINGS: BONES: No definitive acute, displaced fracture or dislocation. Redemonstrated cortical irregularity o f the hamate, likely reflecting osteophytosis or remote traumatic injury. Small ossific lesion along the dorsal carpus, which may reflect remote triquetral fracture. The carpal bones are normally aligne d. SOFT TISSUES: Faint calcific densities of the TFCC, compatible with chondral calcinosis. Diffuse bernabe a. IMPRESSION: 1.No significant interval change. Reviewed by: Magnus Gold MD on 10/31/2021 2:00 PM PDT Approved by: Magnus Gold MD on 10/31/2021 2:00 PM PDT Station ID: [id number]
[2021-10-31 14:04] VITALS: BP 140/78
== END 2021-10-31 14:55 | disposition home or self-care (01) ==
LOC: ED 13:09
DX: S60.221A Contusion of right hand, initial encounter (principal); W19.XXXA Unspecified fall, initial encounter; I10 Essential (primary) hypertension
CPT/HCPCS: 99282; 99283

== ENCOUNTER 2022-03-27 09:22 | Emergency (ER) | payer MEDICARE ==
--- NOTE | 2022-03-27 09:40 | ED Physician Documentation ---
History of Present Illness - Stated complaint Stated Complaint: CHEST PX,HIGH BP - Chief complaint Chief Complaint: Cardiac - Additonal information Additional information: Patient is 81-year-old male presenting with left-sided chest pain. Reports pain began this morning. Associated with nausea and anxiety. Reports has had similar pain in the past which she is attributed to gastric reflux. Also endorses for history of hypertension for which she takes lisinopril. Has not taken his medications this morning. Reports 2 previous stents however states that current painIs dissimilar. Currently no symptoms. Review of Systems Ten Systems: 10 systems reviewed and negative Cardiac: reports: Chest pain / pressure PD PAST MEDICAL HISTORY - Past Medical History Cardiovascular: Hypertension, Coronary artery disease, [place] Respiratory: None Neuro: None Endocrine/Autoimmune: None GI: GERD : Retention HEENT: None Psych: Anxiety Musculoskeletal: Osteoarthritis Derm: None - Past Surgical History Past Surgical History: Yes General: EGD Cardiovascular: Coronary stent Derm: Skin cancer surgery - Present Medications Home Medications: Ambulatory Orders Medication Instructions Recorded Confirmed lisinopriL [Prinivil] 5 mg PO DAILY 09/20/20 10/27/21 HYDROcod/ACETAM 5/325 [[place] 5/325] 1 - 2 tablet PO Q6H PRN #14 tablet 10/27/21 - Allergies Allergies/Adverse Reactions: Allergies Allergy/AdvReac Type Severity Reaction Status Date / Time No Known Drug Allergies Allergy Verified 03/27/22 09:37 - Social History Does the pt smoke?: No Smoking Status: Never smoker Does the pt drink ETOH?: Yes Does the pt have substance abuse?: No - Immunizations Immunizations are current?: Yes - POLST Patient has POLST: No PD ED PE NORMAL - General General: Alert and oriented X 3, No acute distress - HEENT HEENT: Atraumatic - Neck Neck: Supple, no meningeal sign - Cardiac Cardiac: RRR - Respiratory Respiratory: No respiratory distress - Abdomen Abdomen: Non tender - Male Male : Deferred - Rectal Rectal: Deferred - Derm Derm: Normal color - Extremities Extremities: No deformity - Neuro Neuro: Alert and oriented X 3, No motor deficit Results - Vitals Vitals: Vital Signs - 24 hr 03/27/22 03/27/22 03/27/22 09:34 09:53 10:07 Temperature 36.7 C Heart Rate 68 62 Respiratory 16 16 Rate Blood Pressure 210/88 H 182/81 H Blood Pressure 210/88 H [Right] O2 Saturation 99 97 03/27/22 03/27/22 03/27/22 10:30 11:00 11:30 Temperature Heart Rate 61 67 56 L Respiratory 16 17 8 L Rate Blood Pressure 166/77 H 144/79 H 170/90 H Blood Pressure [Right] O2 Saturation 98 97 98 Oxygen O2 Source Room air - EKG (time done) 0929 Rate: Rate (enter#) (67) Rhythm: NSR [place]: RAD Intervals: Normal [place] QRS: Normal Ischemia: Non specific changes - Labs Labs: Laboratory Tests 03/27/22 03/27/22 03/27/22 09:46 09:46 09:46 WBC 4.9 RBC 4.81 Hgb 14.8 Hct 45.3 MCV 94.2 H MCH 30.8 MCHC 32.7 RDW 13.7 Plt Count 223 MPV 9.4 Neut # (Auto) 3.1 Lymph # (Auto) 1.2 L [place] # (Auto) 0.5 Eos # (Auto) 0.1 Baso # (Auto) 0.0 Absolute Nucleated RBC 0.00 Nucleated RBC % 0.0 D-Dimer < 200.0 L Sodium 139 Potassium 4.1 Chloride 101 Carbon Dioxide 28 Anion Gap 10.0 BUN 17 Creatinine 1.1 Estimated GFR (MDRD) 64 L Glucose 101 H Calcium 9.7 Total Bilirubin 0.9 AST 23 ALT 15 Alkaline Phosphatase 69 Troponin I High Sens Total Protein 7.4 Albumin 4.6 Globulin 2.8 Albumin/Globulin Ratio 1.6 Lipase 33 03/27/22 03/27/22 09:46 11:29 WBC RBC Hgb Hct MCV MCH MCHC RDW Plt Count MPV Neut # (Auto) Lymph # (Auto) [place] # (Auto) Eos # (Auto) Baso # (Auto) Absolute Nucleated RBC Nucleated RBC % D-Dimer Sodium Potassium Chloride Carbon Dioxide Anion Gap BUN Creatinine Estimated GFR (MDRD) Glucose Calcium Total Bilirubin AST ALT Alkaline Phosphatase Troponin I High Sens 9.8 10.0 Total Protein Albumin Globulin Albumin/Globulin Ratio Lipase PD MEDICAL DECISION MAKING - ED course Complexity details: reviewed results, re-evaluated patient, d/w patient ED course: Patient is 81-year-old male presenting to the emergency department with chief complaint of chest pain. Afebrile, hemodynamically stable on arrival to the emergency department. Past medical is significant for coronary artery disease and patient [place] for history of having 2 stents. EKG nonacute. Serial troponins negative. D-dimer negative. Monitored in the emergency department for several hours without recurrent symptoms. Will discharge at this time for follow-up with primary care/cardiology as needed. Otherwise clear return precautions were given prior to discharge. Departure - Departure Disposition: 01 Home, Self Care Clinical Impression: Chest pain Instructions: ED Chest Pain Atypical Unkn Cause Comments: Thank you for allowing us to care for you today and would be general. Today in the emergency department your evaluated for any possible life- threatening medical emergency. All the testing performed including your EKG, blood work and chest x-ray were all very reassuring. I would like you to make a follow-up appointment with your primary care doctor soon as possible. If it anytime you have any new or worsening symptoms please not hesitate to return.
[2022-03-27] MEDS ORDERED: lisinopriL 5 MG TABLET PO STA (09:51)
[2022-03-27 09:55] LABS: BASOPHILS % (AUTO) 0.8 %; EOSINOPHILS # (AUTO) 0.1 10^3/uL (0.0-0.7); EOSINOPHILS % (AUTO) 2.2 %; HCT - HEMATOCRIT 45.3 % (42.0-52.0); HGB - HEMOGLOBIN 14.8 g/dL (14.0-18.0); LYMPHOCYTES # (AUTO) 1.2 10^3/uL (1.5-3.5); LYMPHOCYTES % (AUTO) 24.8 %; MEAN CORPUSCULAR HEMOGLOBIN 30.8 pg (27.0-31.0); MEAN CORPUSCULAR HGB CONC 32.7 g/dL (32.0-36.0); MEAN CORPUSCULAR VOLUME 94.2 fL (80.0-94.0); MEAN PLATELET VOLUME 9.4 fL (7.4-11.4); MONOCYTES # (AUTO) 0.5 10^3/uL (0.0-1.0); MONOCYTES % (AUTO) 9.8 %; NEUTROPHILS # (AUTO) 3.1 10^3/uL (1.5-6.6); NEUTROPHILS % (AUTO) 62.2 %; PLT - PLATELET COUNT 223 10^3/uL (130-450); RED BLOOD COUNT 4.81 10^6/uL (4.70-6.10); RED CELL DISTRIBUTION WIDTH 13.7 % (12.0-15.0); WHITE BLOOD COUNT 4.9 x10^3/uL (4.8-10.8)
--- NOTE | 2022-03-27 10:23 | XRAY Report ---
PROCEDURE: Chest 1 View X-Ray INDICATIONS: chest pain TECHNIQUE: One view of the chest was acquired. COMPARISON: CXR 10/07/2021, 03/30/2019. FINDINGS: Surgical changes and devices: None. Lungs and pleura: No pleural effusions or pneumothorax. Left costophrenic angle is not fully visuali zed. Lungs are clear. Mediastinum: Mediastinal contours appear normal. Heart size is normal. Bones and chest wall: No suspicious bony lesions. Overlying soft tissues appear unremarkable. IMPRESSION: No acute cardiopulmonary abnormality. Reviewed by: Kamron Ellis MD on 03/27/2022 10:21 AM PDT Approved by: Kamron Ellis MD on 03/27/2022 10:21 AM PDT Station ID: [id number]
[2022-03-27 10:29] LABS: ALBUMIN 4.6 g/dL (3.2-5.5); ALBUMIN/GLOBULIN RATIO 1.6 (1.0-2.2); BILIRUBIN,TOTAL 0.9 mg/dL (0.2-1.0); CREATININE 1.1 mg/dL (0.6-1.2); TOTAL PROTEIN 7.4 g/dL (6.7-8.2)
[2022-03-27 10:30] LABS: CALCIUM 9.7 mg/dL (8.5-10.3); POTASSIUM 4.1 mmol/L (3.5-5.0)
[2022-03-27 12:02] VITALS: BP 186/72
== END 2022-03-27 12:12 | disposition home or self-care (01) ==
LOC: ED 09:22
DX: R07.9 Chest pain, unspecified (principal); I10 Essential (primary) hypertension
CPT/HCPCS: 36415; 71045; 80053; 83690; 84484; 85025; 85379; 93005; 99282; 99284; A9270

== ENCOUNTER 2022-04-11 12:17 | Outpatient (CLI) | payer MEDICARE ==
[2022-04-11 12:58] LABS: ALBUMIN 4.6 g/dL (3.2-5.5); ALBUMIN/GLOBULIN RATIO 1.8 (1.0-2.2); ALKALINE PHOSPHATASE 70 IU/L (42-121); ALT ALANINE AMINOTRANSFERASE 18 IU/L (10-60); AST ASPARTATE AMINOTRANSFERASE 25 IU/L (10-42); BILIRUBIN,TOTAL 0.9 mg/dL (0.2-1.0); BUN - BLOOD UREA NITROGEN 19 mg/dL (6-20); CALCIUM 9.6 mg/dL (8.5-10.3); CARBON DIOXIDE - CO2 30 mmol/L (21-32); CHLORIDE 102 mmol/L (101-111); CHOL/HDL RATIO 6.6 (<5.0); CHOLESTEROL 262 mg/dL; CREATININE 1.1 mg/dL (0.6-1.2); GFR - MDRD 64 (>89); GLUCOSE 110 mg/dL (70-100); HDL CHOLESTEROL 40 mg/dL; LDL CHOLESTEROL,CALCULATED 164 mg/dL; LDL/HDL RATIO 4.1 (<3.6); POTASSIUM 4.7 mmol/L (3.5-5.0); SODIUM 138 mmol/L (135-145); TOTAL PROTEIN 7.1 g/dL (6.7-8.2); TRIGLYCERIDES 292 mg/dL; VLDL CHOLESTEROL 58 mg/dL
[2022-04-11 13:02] LABS: CRP - C-REACTIVE PROTEIN < 1.0 mg/dL (0-1.0)
[2022-04-11 13:20] LABS: ESTIMATED AVERAGE GLUCOSE 120 mg/dL (70-100); HEMOGLOBIN A1c% 5.8 % (4.27-6.07)
== END 2022-04-11 12:18 | disposition home or self-care (01) ==
LOC: LAB 12:17
PROVIDERS: ATTEND Family Medicine
DX: Z00.00 Encounter for general adult medical examination without abnormal findings (principal); I10 Essential (primary) hypertension
CPT/HCPCS: 36415; 80053; 80061; 83036; 83721; 86140

== ENCOUNTER 2022-10-15 08:28 | Outpatient (CLI) | payer MEDICARE ==
[2022-10-15 09:01] LABS: ALBUMIN 4.5 g/dL (3.2-5.5); ALBUMIN/GLOBULIN RATIO 1.6 (1.0-2.2); ALKALINE PHOSPHATASE 84 IU/L (42-121); ALT ALANINE AMINOTRANSFERASE 24 IU/L (10-60); AST ASPARTATE AMINOTRANSFERASE 28 IU/L (10-42); BILIRUBIN,TOTAL 0.8 mg/dL (0.2-1.0); BUN - BLOOD UREA NITROGEN 16 mg/dL (6-20); CALCIUM 9.5 mg/dL (8.5-10.3); CARBON DIOXIDE - CO2 29 mmol/L (21-32); CHLORIDE 103 mmol/L (101-111); CREATININE 1.1 mg/dL (0.6-1.2); GFR - MDRD 64 (>89); GLUCOSE 114 mg/dL (70-100); POTASSIUM 4.3 mmol/L (3.5-5.0); SODIUM 141 mmol/L (135-145); TOTAL PROTEIN 7.3 g/dL (6.7-8.2)
[2022-10-15 09:09] LABS: CRP - C-REACTIVE PROTEIN < 1.0 mg/dL (0-1.0)
== END 2022-10-15 08:29 | disposition home or self-care (01) ==
LOC: LAB 08:28
PROVIDERS: ATTEND Family Medicine
DX: I10 Essential (primary) hypertension (principal)
CPT/HCPCS: 36415; 80053; 86140

== ENCOUNTER 2022-11-20 10:54 | Emergency (ER) | payer MEDICARE ==
[2022-11-20 11:05] VITALS: BP 172/76
--- NOTE | 2022-11-20 14:12 | ED Physician Documentation ---
History of Present Illness - Stated complaint Stated Complaint: RT FOOT PX - Chief complaint Chief Complaint: Ext Problem - Additonal information Additional information: 82-year-old male presents emergency department for evaluation of 2 to 3 weeks right foot pain. He mostly has pain in the great toe. He also has pain that extends across the metatarsals into the toes of the second and third joints. He also occasionally has pain in his posterior Achilles. No falls or trauma. States he has remote history of gout but cannot remember if this feels similar. Patient reports he has a plant-based diet. He takes lisinopril only. He does not take ibuprofen or Tylenol as he likes to avoid medications. No fevers. No swelling. Review of Systems Musculoskeletal: reports: Joint pain Neurologic: reports: Reviewed and negative Psychiatric: reports: Reviewed and negative PD PAST MEDICAL HISTORY - Past Medical History Cardiovascular: Hypertension, Coronary artery disease, MA Respiratory: None Neuro: None Endocrine/Autoimmune: None GI: GERD : Retention HEENT: None Psych: Anxiety Musculoskeletal: Osteoarthritis Derm: None - Past Surgical History Past Surgical History: Yes General: EGD Cardiovascular: Coronary stent Derm: Skin cancer surgery - Present Medications Home Medications: Ambulatory Orders Medication Instructions Recorded Confirmed lisinopriL [Prinivil] 5 mg PO DAILY 09/20/20 10/27/21 HYDROcod/ACETAM 5/325 [Emery 5/325] 1 - 2 tablet PO Q6H PRN #14 tablet 10/27/21 - Allergies Allergies/Adverse Reactions: Allergies Allergy/AdvReac Type Severity Reaction Status Date / Time No Known Drug Allergies Allergy Verified 11/20/22 10:59 - Social History Does the pt smoke?: No Smoking Status: Never smoker Does the pt drink ETOH?: Yes Does the pt have substance abuse?: No - Immunizations Immunizations are current?: Yes - POLST Patient has POLST: No PD ED PE EXPANDED - General General: Alert, No acute distress - Extremities Extremities: Left foot (Neurovascular intact. 2+ DP pulse. Bunion is noted at the MCP of the great toe. No surrounding swelling or erythema. No significant tenderness elicited with palpation of the MCP or MCP PIP joints of the foot. Normal flexion extension of the foot at the ankle. Intact Achilles tendon) Results - Vitals Vitals: Vital Signs - 24 hr 11/20/22 11:00 Temperature 36.5 C Heart Rate 66 Respiratory 16 Rate Blood Pressure 172/76 H O2 Saturation 98 Oxygen O2 Source Room air - Labs Labs: Laboratory Tests 11/20/22 14:29 Uric Acid 7.7 H - Rads (name of study) left foot xr Relevant Findings:: Final report received (Arthritis at left MTP joint) PD Medical Decision Making - ED course Complexity details: reviewed results, re-evaluated patient, d/w patient, d/w family ED course: Well-appearing 82-year-old male presents emergency department for evaluation of several weeks pain of the Right foot at the MTP joint as well as the lesser toes. No falls or trauma. No swelling or erythema. He does have a remote history of gout but without significant pain at the joint swelling or erythema I doubt gouts or cellulitis. A uric acid level is mildly elevated at 7.7, But without of swollen erythematous or tender joint I would defer treatment for gout at this time. He also has some pain across the Achilles tendon that is worse with activity but improves with rest. Clinically he has an intact Achilles tendon and I discussed with him that this is likely a sign of Achilles tendinitis. An x-ray of the foot is interpreted by the radiologist showed some arthritis at the left MTP joint. This is consistent with his age history and clinical exam. I discussed with the patient continued follow-up with a fifth hand as already scheduled. I am encouraging him to take Tylenol as he is concerned about kidney function for analgesia. We discussed usual emergent return precautions for concerns of worsening symptoms or infection Departure - Departure Disposition: 01 Home, Self Care Clinical Impression: Arthritis of right foot Achilles tendonitis Qualifiers: Laterality: right Qualified Code(s): M76.61 - Achilles tendinitis, right leg Condition: Stable Record reviewed to determine appropriate education?: Yes Comments: Dhiraj the x-ray of your foot showed some arthritis developing at the great toe near the site of the bunion. The pain that you have in your Achilles tendon is something called tendinitis. In the long-term these are expected changes with aging. I do recommend you take Tylenol 500 mg Once or twice a day to help with pain. Continue to follow-up with fifth hand of you have already been scheduled. Because you are active and otherwise healthy I expect that you will have occasional flares of the tendinitis and arthritis over time but I encourage you to continue to be active as much as you can
--- NOTE | 2022-11-20 14:24 | XRAY Report ---
PROCEDURE: Foot 3 View RT INDICATIONS: pain for 3 weeks; hx of gout TECHNIQUE: 3 views of the foot were acquired. COMPARISON: None. FINDINGS: Bones: No fractures or dislocations. No suspicious bony lesions. First MTP arthritic change. Soft tissues: No suspicious soft tissue calcifications or masses. IMPRESSION: First MTP joint arthritis. No acute bony abnormality. Reviewed by: Atilio Clark MD on 11/20/2022 2:22 PM PDT Approved by: Atilio Clark MD on 11/20/2022 2:22 PM PDT Station ID: [id number]
== END 2022-11-20 15:15 | disposition home or self-care (01) ==
LOC: ED 10:54
DX: M19.071 Primary osteoarthritis, right ankle and foot (principal); M76.61 Achilles tendinitis, right leg; I10 Essential (primary) hypertension
CPT/HCPCS: 36415; 84550; 99283; 99284

== ENCOUNTER 2023-06-19 09:14 | Outpatient (CLI) | payer MEDICARE ==
[2023-06-19 09:39] LABS: ALBUMIN 4.5 g/dL (3.2-5.5); ALBUMIN/GLOBULIN RATIO 2.3 (1.0-2.2); ALKALINE PHOSPHATASE 69 IU/L (42-121); ALT ALANINE AMINOTRANSFERASE 14 IU/L (10-60); AST ASPARTATE AMINOTRANSFERASE 20 IU/L (10-42); BILIRUBIN,TOTAL 0.6 mg/dL (0.2-1.0); BUN - BLOOD UREA NITROGEN 18 mg/dL (6-20); CALCIUM 9.5 mg/dL (8.5-10.3); CARBON DIOXIDE - CO2 32 mmol/L (21-32); CHLORIDE 103 mmol/L (101-111); CHOL/HDL RATIO 7.1 (<5.0); CHOLESTEROL 268 mg/dL; CREATININE 1.2 mg/dL (0.6-1.3); GFR - MDRD 58 (>89); GLUCOSE 101 mg/dL (74-104); HDL CHOLESTEROL 38 mg/dL; POTASSIUM 4.1 mmol/L (3.5-4.5); SODIUM 141 mmol/L (135-145); TOTAL PROTEIN 6.5 g/dL (6.4-8.9); TRIGLYCERIDES 412 mg/dL (48-352)
[2023-06-19 10:57] LABS: LDL CHOLESTEROL,DIRECT 185 mg/dL (75-193); LDLD/HDL RATIO 4.9 (<3.6)
== END 2023-06-19 09:15 | disposition home or self-care (01) ==
LOC: LAB 09:14
PROVIDERS: ATTEND Family Medicine
DX: Z00.00 Encounter for general adult medical examination without abnormal findings (principal)
CPT/HCPCS: 36415; 80053; 80061; 83721